=== PATIENT | male | born 1985 ===

== ENCOUNTER 2024-11-06 06:22 | Day surgery (SDC) | payer BC, SELFPAY ==
[2024-11-06] VITALS (11 sets, daily range): BP systolic 127–146; BP diastolic 75–107; BMI 28.4
[2024-11-06] MEDS: NORMOSOL-R/PLASMALYTE-A 1000 IV (09:09)
[2024-11-06] MEDS: TYLENOL 1000 MG PO (09:09)
[2024-11-06] MEDS: DILAUDID 0.5 MG IV ×3 (11:16→11:50)
== END 2024-11-06 13:16 | disposition home or self-care (01) ==
LOC: SDS 06:22
PROVIDERS: ATTENDING PHYSICIAN Otolaryngology
DX: S02.2XXA Fracture of nasal bones, initial encounter for closed fracture (principal); X58.XXXA Exposure to other specified factors, initial encounter; J34.3 Hypertrophy of nasal turbinates; J34.2 Deviated nasal septum
CPT/HCPCS: 30130; 30520